=== PATIENT | male | born 1935 | race Hispanic/Latino ===

== ENCOUNTER 2018-10-27 19:14 | Inpatient (IN) | payer MEDICARE ==
[~2018-10-27] VITALS: Ht 180.3 cm; Wt 86.2 kg
[~2018-10-27 19:14] MED LIST: AMLODIPINE BES2.5 MG PO; FINASTERIDE5 MG PO; TAMSULOSIN HCL0.4 MG PO
[2018-10-27] MEDS ORDERED: PANTOPRAZOLE 40 MG 10ML VIAL IV STA (20:12)
[2018-10-27 20:24] LABS: BASOPHILS # (AUTO) 0.1 (0.0-0.1); BASOPHILS % 0.9 % (0.0-1.0); EOSINOPHILS # (AUTO) 0.3 (0.0-0.4); EOSINOPHILS % 4.8 % (0.0-6.0); HEMATOCRIT 22.3 % (38.2-49.6); LYMPHOCYTES # (AUTO) 0.9 (1.0-3.2); LYMPHOCYTES % 16.7 % (18.0-39.1); MEAN CORPUSCULAR HEMOGLOBIN 21.2 pg (28-32); MEAN CORPUSCULAR HGB CONC 29.6 g/dL (31-35); MEAN CORPUSCULAR VOLUME 71.5 fL (81-99); MONOCYTES # (AUTO) 0.6 (0.2-0.8); MONOCYTES % 10.6 % (4.4-11.3); NEUTROPHILS # (AUTO) 3.6 (2.1-6.9); NEUTROPHILS % 66.4 % (38.7-80.0); PLATELET COUNT 289 x10e3/uL (140-360); RED BLOOD COUNT 3.12 x10e6/uL (4.3-5.7); RED CELL DISTRIBUTION WIDTH 16.2 % (11.7-14.4)
[2018-10-27 20:28] LABS: HEMOGLOBIN 6.6 g/dL (14.0-18.0)
[2018-10-27 20:37] LABS: INR 1.08; PROTHROMBIN TIME 14.5 seconds (11.9-14.5)
[2018-10-27 20:38] LABS: PARTIAL THROMBOPLASTIN TIME 36.4 seconds (23.8-35.5)
[2018-10-27 20:44] LABS: ALANINE AMINOTRANSFERASE 6 IU/L (0-55); ALBUMIN 3.8 g/dL (3.5-5.0); ALBUMIN/GLOBULIN RATIO 1.4 (0.8-2.0); ALKALINE PHOSPHATASE 73 IU/L (40-150); ANION GAP 10.4 mmol/L (8-16); BLOOD UREA NITROGEN 9 mg/dL (7-26); BUN/CREATININE RATIO 13 (6-25); CALCIUM 8.7 mg/dL (8.4-10.2); CARBON DIOXIDE 24 mmol/L (22-29); CHLORIDE 99 mmol/L (98-107); CREATININE, SERUM 0.71 mg/dL (0.72-1.25); EST GLOMERULAR FILTRATION RATE > 60 ML/MIN (60-); GLUCOSE 105 mg/dL (74-118); POTASSIUM 4.4 mmol/L (3.5-5.1); SODIUM 129 mmol/L (136-145)
[2018-10-27] MEDS ORDERED: SODIUM CHLORIDE 0.9% 250ML 250 ML IV ONE (20:45)
[2018-10-27] MEDS ORDERED: ASPIR-LOW81 MG PO (20:48)
--- NOTE | 2018-10-27 20:48 | NUR ---
SPOKE TO DAUGHTER AT BEDSIDE REGARDING GETTING THE ACCURATE DOSAGE OF CIALIS HE IS CURRENTLY TAKING FOR PATIENT SAFETY. DAUGHTER AND PATIENT ARE NOT SURE OF DAILY DOSE TAKEN, DAUGHTER STATED SHE WOULD LET US KNOW THE DOSAGE SOON POSSIBLE.
[2018-10-27] MEDS ORDERED: SODIUM CHLORIDE FLUSH 10 ML SYR INJ PRN (21:30)
[2018-10-27] MEDS ORDERED: ONDANSETRON HCL INJ 2MG/ML 2ML 2 MG/ML VIAL IV PRN (21:30)
[2018-10-27 21:38] VITALS: BP 133/73
[2018-10-27 22:30] VITALS: BP 133/73
--- NOTE | 2018-10-27 22:30 | NUR ---
patient is a new admit that arrived via stretcher. patient is awake and talking. denies pain or discomfort. patient has been assisted into the bed. bed is in lowest position and call sandoval is within reach. will continue to monitor patient.
[2018-10-27] MEDS ORDERED: SODIUM CHLORIDE 0.9% 250ML 250 ML ONE (23:52)
[2018-10-28] VITALS (7 sets, daily range): BP systolic 125–163; BP diastolic 63–76
--- NOTE | 2018-10-28 00:13 | NUR ---
1 unit of blood is transfusing. no adverse reactions noted. patient is tolerating infusion process well. will continue to monitor infusion process.
--- NOTE | 2018-10-28 02:37 | NUR ---
1 unit of blood is done transfusing. no adverse reaction noted. patient tolerated procedure well. post transfusion lasix has been administered.
[2018-10-28] MEDS: FUROSEMIDE INJ 10 MG/ML 2 ML VIAL IV PRN ×2 (02:42→06:10)
[2018-10-28] MEDS ORDERED: SODIUM CHLORIDE 0.9% 250ML 250 ML ONE (03:14)
--- NOTE | 2018-10-28 03:28 | NUR ---
second unit of blood has started to transfuse. patient is tolerating procedure well. no adverse reaction noted. will continue to monitor patients transfusion process.
--- NOTE | 2018-10-28 06:10 | NUR ---
second unit of blood is done transfusing. patient tolerated procedure well. no adverse reaction noted. patient has been given post transfusion lasix.
--- NOTE | 2018-10-28 07:07 | NUR ---
report given to day nurse. patient is resting in bed. bed is in lowest position and call sandoval is within reach.
[2018-10-28] MEDS ORDERED: ACETAMINOPHEN 325 MG TAB PO PRN (07:15)
[2018-10-28] MEDS ORDERED: ZOLPIDEM TARTRATE 5 MG TAB PO PRN (07:15)
[2018-10-28] MEDS ORDERED: ONDANSETRON HCL INJ 2MG/ML 2ML 2 MG/ML VIAL IV PRN (07:15)
--- NOTE | 2018-10-28 07:20 | NUR ---
PRIMARY CARE PHYSICIAN: [facility]. CHIEF COMPLAINT: fatigue HISTORY OF PRESENT ILLNESS: This is an 83-year-old man felt dizzy and tired, developed severe anemia. Pt has not been on antiplatelets or blood thinners? Last colonoscopy, pt does not recall. no melena/hematochezia/abdominal pain. 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 ALLERGIES: PER ELECTRONIC MEDICAL RECORD. FAMILY HISTORY: Unknown. SOCIAL HISTORY: . He has a daughter who is involved in his care. No alcohol or illicits. The patient previously served in the [place]. Former smoker. MEDICATIONS: Per electronic medical record. REVIEW OF SYSTEMS: no f/c/s/N/V/D?SCOTT?cp/back pain/melena/hematochezia PHYSICAL EXAMINATION: VITAL SIGNS: revd PE: tired appearing anicteric ns1s2 mod bs soft nt nd no e/t awake; alert; rayo; hearing deficits skin dry n. affect LABS: Reviewed. MEDICATIONS: Reviewed. A/P: 83yoM Severe anemia Hyponatremia HTN Hx MV prolapse HTN BPH Decreased hearing PLAN f/u anemia panel 2 units PRBC; stool occult negative IV ppi Will need colonoscopy outpt. Consider CT abdomen. Afshin Blanchard MD, PhD.
[2018-10-28] MEDS: PANTOPRAZOLE 40 MG 10ML VIAL IV SCH (08:38)
[2018-10-28] MEDS: FERROUS SULFATE 325 MG TAB PO SCH ×2 (08:38→16:28)
[2018-10-28] MEDS: MULTIVITAMINS/MINERALS TAB PO SCH (08:38)
[2018-10-28 10:39] LABS: BASOPHILS # (AUTO) 0.1 (0.0-0.1); BASOPHILS % 1.1 % (0.0-1.0); EOSINOPHILS # (AUTO) 0.2 (0.0-0.4); EOSINOPHILS % 3.4 % (0.0-6.0); HEMATOCRIT 28.9 % (38.2-49.6); HEMOGLOBIN 8.9 g/dL (14.0-18.0); LYMPHOCYTES # (AUTO) 0.8 (1.0-3.2); LYMPHOCYTES % 14.9 % (18.0-39.1); MEAN CORPUSCULAR HEMOGLOBIN 22.5 pg (28-32); MEAN CORPUSCULAR HGB CONC 30.8 g/dL (31-35); MONOCYTES # (AUTO) 0.5 (0.2-0.8); NEUTROPHILS # (AUTO) 3.7 (2.1-6.9); NEUTROPHILS % 70.2 % (38.7-80.0); PLATELET COUNT 279 x10e3/uL (140-360); RED BLOOD COUNT 3.96 x10e6/uL (4.3-5.7); RED CELL DISTRIBUTION WIDTH 17.3 % (11.7-14.4)
[2018-10-28 10:59] LABS: ALANINE AMINOTRANSFERASE 7 IU/L (0-55); ALBUMIN 3.6 g/dL (3.5-5.0); ALBUMIN/GLOBULIN RATIO 1.2 (0.8-2.0); ALKALINE PHOSPHATASE 68 IU/L (40-150); BLOOD UREA NITROGEN 8 mg/dL (7-26); BUN/CREATININE RATIO 12 (6-25); CARBON DIOXIDE 27 mmol/L (22-29); CHLORIDE 100 mmol/L (98-107); CREATININE, SERUM 0.69 mg/dL (0.72-1.25); EST GLOMERULAR FILTRATION RATE > 60 ML/MIN (60-); GLUCOSE 116 mg/dL (74-118); SODIUM 134 mmol/L (136-145)
--- NOTE | 2018-10-28 11:06 | NUR ---
patient resting in bed, denies any pain not in any distress, call light in reach
[2018-10-28 13:38] LABS: FERRITIN 13.88 ng/mL (21.81-274.66); FREE THYROXINE INDEX 2.5485 (1.4-3.8); THYROID STIMULATING HORMONE 2.123 uIU/mL (0.350-4.940)
[2018-10-28] MEDS ORDERED: CYANOCOBALAMIN INJ 1,000 MCG/ML VIAL IM SCH (17:00)
[2018-10-28] MEDS ORDERED: CIALIS5 MG PO (18:47)
[2018-10-28] MEDS ORDERED: METOPROLOL SUCC25 MG PO (18:47)
--- NOTE | 2018-10-28 19:04 | NUR ---
received report from day nurse. patient is resting comfortably in bed. bed is in lowest position and call sandoval is within reach. will continue to monitor patient's care.
[2018-10-29] VITALS (9 sets, daily range): BP systolic 115–152; BP diastolic 71–82
[2018-10-29] MEDS ORDERED: SODIUM CHLORIDE 0.9% 50ML 50 ML ONE (05:34)
[2018-10-29] MEDS ORDERED: IOPAMIDOL 370 MG/ML 200 ML INFUS..BTL INJ ONE (05:35)
--- NOTE | 2018-10-29 06:37 | Diagnostic Imaging Report ---
CT Abdomen And Pelvis with Intravenous Contrast INDICATION: Severe anemia ^severe anemia- evaluate for mass or other abnormalities. ^[id number] ^[id number] TECHNIQUE: Thin collimation axial images obtained from the diaphragm to the level of the pubic symphysis following the uneventful administration of 100 cc of low osmolar, nonionic intravenous contrast. Dose reduction techniques used: Automated exposure control, adjustment of the mAs and/or kVp according to patient size, standardized low-dose protocol, and/or iterative reconstruction technique. RADIATION DOSE: Total DLP: 475.56 mGy*cm Estimated effective dose: (DLP x 0.015 x size factor) mSv CTDIvol has been reviewed. It is below the limits set by the Radiation Protocol Committee (RPC). COMPARISON: None. ABDOMEN FINDINGS: Lung Bases: Mild bibasilar reticulation suggestive of early fibrosis. No infiltrates or masses. Visualized portion of the mediastinum demonstrate coronary artery and proximal aortic calcifications. Liver: Mild steatosis. No evidence for mass. Gallbladder: Absent. No biliary ductal dilatation. Pancreas: Normal attenuation without mass or ductal dilatation. Spleen: Normal in size. No evidence of mass.. Adrenal Glands: No evidence for mass. Kidneys: Right: Normal enhancement. No soft tissue mass. No hydronephrosis. Left: Normal enhancement. Upper pole cyst measures 2.2 cm. No hydronephrosis. Lymph Nodes: No enlarged abdominal or retroperitoneal lymph nodes. Aorta: Tortuous and diffusely calcified PELVIS FINDINGS: Bowel: Stomach: Normal. Small Bowel: Normal in caliber with normal wall thickness. Large Bowel: Diverticulosis coli. No associated inflammation. No focal mural thickening. Appendix: Not visualized and may be absent or collapsed. Bladder: Under distended with circumferential mural thickening. There is a diverticulum at the dome. Prostate: Enlarged. Lymph nodes: No enlarged mesenteric, pelvic, or internal lymph nodes. No free fluid or fluid collection Bones: Mild degenerative changes of the spine superimposed on scoliosis. There is grade 1 retrolisthesis of L2 on L3 without pars defects. No lytic or blastic lesions. Soft tissues: Supraumbilical hernia through the linea alba contains a knuckle of small bowel and is located approximately 12 cm above the umbilicus. The aperture measures 15 mm. No fluid in the hernia sac.. IMPRESSION: 1. No mass or lymphadenopathy to explain anemia. 2. Diverticulosis coli. No evidence for bowel obstruction or inflammation. 3. Left renal cyst. Recommend confirmation of uniform cystic contents with renal ultrasound. 4. Prostate hypertrophy and bladder wall thickening suggestive of outlet obstruction. 5. Small bowel containing abdominal wall hernia as described above. Signed by: Dr. Malik Rodrigues MD on 10/29/2018 6:34 AM
--- NOTE | 2018-10-29 07:01 | NUR ---
report given to day nurse. patient is resting in bed. bed is in lowest position and call sandoval is within reach.
--- NOTE | 2018-10-29 07:15 | NUR ---
RECEIVED REPORT FROM INBOUND CALL CENTER REPRESENTATIVE RN. PT IN BED LYING DOWN, BED IN LOWEST POSITION, WHEELS LOCKED, CALL LIGHT AND BEDSIDE TABLE WITHIN REACH. PT SHOWS NO S/S OF DISTRESS. WILL CONTINUE TO MONITOR
[2018-10-29] MEDS: MULTIVITAMINS/MINERALS TAB PO SCH (08:12)
[2018-10-29] MEDS: CYANOCOBALAMIN 1,000 MCG TAB PO SCH (08:12)
[2018-10-29] MEDS: FERROUS SULFATE 325 MG TAB PO SCH ×2 (08:12→17:30)
[2018-10-29] MEDS: PANTOPRAZOLE 40 MG 10ML VIAL IV SCH (08:29)
--- NOTE | 2018-10-29 10:25 | NUR ---
VOICE MESSAGE, LEFT FOR DR. STEPHENS REQUESTING CALL BACK: PT SATES HE IS LIGHTHEADED, SHORT OF BREATH, EXTREMELY TIRED AND JUST DOESN'T FEEL GOOD. VITALS WERE ASSESSED AT 10:15- B/P 139/82. O2 99%. TEMP 96.3
[2018-10-29] MEDS ORDERED: MECLIZINE HCL 12.5 MG TAB PO PRN (10:45)
[2018-10-29 11:05] LABS: BASOPHILS # (AUTO) 0.1 (0.0-0.1); BASOPHILS % 0.8 % (0.0-1.0); EOSINOPHILS # (AUTO) 0.3 (0.0-0.4); EOSINOPHILS % 4.3 % (0.0-6.0); HEMATOCRIT 28.3 % (38.2-49.6); HEMOGLOBIN 8.8 g/dL (14.0-18.0); LYMPHOCYTES # (AUTO) 1.2 (1.0-3.2); LYMPHOCYTES % 18.9 % (18.0-39.1); MEAN CORPUSCULAR HEMOGLOBIN 22.6 pg (28-32); MEAN CORPUSCULAR HGB CONC 31.1 g/dL (31-35); MEAN CORPUSCULAR VOLUME 72.8 fL (81-99); MONOCYTES # (AUTO) 0.6 (0.2-0.8); MONOCYTES % 8.8 % (4.4-11.3); NEUTROPHILS # (AUTO) 4.3 (2.1-6.9); PLATELET COUNT 288 x10e3/uL (140-360); RED BLOOD COUNT 3.89 x10e6/uL (4.3-5.7); RED CELL DISTRIBUTION WIDTH 17.9 % (11.7-14.4)
[2018-10-29 11:55] LABS: ANION GAP 8.3 mmol/L (8-16); BLOOD UREA NITROGEN 12 mg/dL (7-26); BUN/CREATININE RATIO 18 (6-25); CALCIUM 8.8 mg/dL (8.4-10.2); CARBON DIOXIDE 27 mmol/L (22-29); CHLORIDE 95 mmol/L (98-107); CREATININE, SERUM 0.67 mg/dL (0.72-1.25); EST GLOMERULAR FILTRATION RATE > 60 ML/MIN (60-); GLUCOSE 128 mg/dL (74-118); PHOSPHORUS 3.2 MG/DL (2.3-4.7); POTASSIUM 4.3 mmol/L (3.5-5.1); SODIUM 126 mmol/L (136-145)
--- NOTE | 2018-10-29 14:50 | NUR ---
IM- progress note O/N; s/p blood transfusion REVIEW OF SYSTEMS: no f/c/s/N/V/D?SCOTT?cp/back pain/melena/hematochezia PHYSICAL EXAMINATION: VITAL SIGNS: revd PE: tired appearing anicteric ns1s2 mod bs soft nt nd no e/t awake; alert; rayo; hearing deficits skin dry n. affect LABS: Reviewed. MEDICATIONS: Reviewed. A/P: 83yoM Severe anemia Hyponatremia HTN Hx MV prolapse HTN BPH Decreased hearing PLAN f/u anemia panel 2 units PRBC; stool occult negative IV ppi Will need colonoscopy outpt. Consider CT abdomen. 10/29 abdominal wall hernia; diverticulosis; no mass seen on CT; Hb stable; hyponatremia- start salt tabs; d/c planning; If Na at 8pm is >130, pt can go home. Afshin Blanchard MD, PhD.
[2018-10-29] MEDS ORDERED: VITAMIN B-121000 MCG PO (14:53)
[2018-10-29] MEDS ORDERED: Meclizine Hcl PO (14:53)
[2018-10-29] MEDS ORDERED: FERROUS SULFAT325 MG PO (14:53)
[2018-10-29] MEDS ORDERED: Multivitamins/Minerals PO (14:53)
[2018-10-29] MEDS ORDERED: SODIUM CHLORIDE1 GM PO (14:53)
[2018-10-29] MEDS ORDERED: PROTONIX20 MG PO (14:54)
[2018-10-29] MEDS: SODIUM CHLORIDE 1 GM TAB PO SCH ×2 (15:27→21:55)
--- NOTE | 2018-10-29 19:15 | NUR ---
REPORT GIVEN TO CONTENT DIRECTOR NURSE. PT HAS NO COMPLAINTS. CALL LIGHT WITHIN REACH, BED LOCKED AND IN LOWEST POSITION, ROOM FREE FROM CLUTTER. FAMILY AT BEDSIDE
--- NOTE | 2018-10-29 20:00 | NUR ---
PATIENT RESTING IN BED WITHOUT ACUTE DISTRESS, HE DENIES PAIN BUT C/O FEELING DIZZY. SKIN INTEGRITY INTACT, CALL LIGHT WITHIN EASY REACH, BED ALARM ON.
--- NOTE | 2018-10-29 20:51 | NUR ---
DR STEPHENS AWARE OF THIS PATIENT'S SODIUM RESULT, NO NEW ORDERS RECEIVED.
--- NOTE | 2018-10-29 23:40 | NUR ---
PATIENT IS ASLEEP, HE'S EASY TO AROUSE AND HE DENIES PAIN. BED ALARM ON, CALL LIGHT WITHIN EASY REACH.
[2018-10-30] VITALS (7 sets, daily range): BP systolic 141–156; BP diastolic 72–87
--- NOTE | 2018-10-30 03:30 | NUR ---
PATIENT IS ASLEEP, HE'S EASY TO AROUSE. BED ALARM ON, CALL LIGHT WITHIN EASY REACH.
[2018-10-30 07:12] LABS: ANION GAP 8.2 mmol/L (8-16); BLOOD UREA NITROGEN 9 mg/dL (7-26); BUN/CREATININE RATIO 15 (6-25); CALCIUM 8.7 mg/dL (8.4-10.2); CARBON DIOXIDE 26 mmol/L (22-29); CHLORIDE 93 mmol/L (98-107); CREATININE, SERUM 0.59 mg/dL (0.72-1.25); EST GLOMERULAR FILTRATION RATE > 60 ML/MIN (60-); GLUCOSE 106 mg/dL (74-118); POTASSIUM 4.2 mmol/L (3.5-5.1); SODIUM 123 mmol/L (136-145)
[2018-10-30] MEDS: FERROUS SULFATE 325 MG TAB PO SCH ×2 (07:46→17:57)
[2018-10-30 07:48] LABS: BLOOD UREA NITROGEN 8 mg/dL (7-26); GLUCOSE 104 mg/dL (74-118); OSMOLALITY,SERUM 246 mOsm/kg (278-305); SODIUM 123 mmol/L (136-145)
[2018-10-30] MEDS ORDERED: FUROSEMIDE 40 MG TAB PO ONE (08:30)
[2018-10-30] MEDS: CYANOCOBALAMIN 1,000 MCG TAB PO SCH (08:34)
[2018-10-30] MEDS: PANTOPRAZOLE 40 MG 10ML VIAL IV SCH (08:34)
[2018-10-30] MEDS: MULTIVITAMINS/MINERALS TAB PO SCH (08:34)
[2018-10-30] MEDS: SODIUM CHLORIDE 1 GM TAB PO SCH ×3 (08:34→20:23)
[2018-10-30] MEDS ORDERED: SODIUM CHLORIDE 1 GM TAB PO ONE (08:45)
[2018-10-30] MEDS ORDERED: SODIUM CHLORIDE 1 GM TAB PO SCH ×2 (08:45→09:00)
--- NOTE | 2018-10-30 16:34 | Consultation ---
DATE OF CONSULTATION: 10/30/2018 HISTORY OF PRESENT ILLNESS: An 83-year-old gentleman, who was admitted with anemia, received packed RBC transfusion. Workup underway. Renal consulted for management of hyponatremia, which has been refractory to treatment. He is currently awake, alert, complaining of mid abdominal pain with some nausea. Denies diarrhea, fever, chills, chest pains. He had a CT with IV contrast shows diverticulosis coli, prostate hypertrophy, and a small umbilical hernia. Laboratory test shows a urine sodium of 76, urine osmolality is pending. Sodium 123, potassium 4.2, creatinine 0.59. Serum osmolality 246. I ordered a uric acid level came back at 4.2, phosphorus 3.2, magnesium 2. SOCIAL HISTORY: The patient does not smoke or drink. CURRENT MEDICATIONS: The patient is on vitamin B12, pantoprazole, Ambien, Tylenol p.r.n. PAST MEDICAL HISTORY: Significant for hypertension. PHYSICAL EXAMINATION: GENERAL: Awake, alert, lying supine, in no apparent distress. VITAL SIGNS: Blood pressure 145/81, pulse rate 73, afebrile, had oxygen saturation 99% on room air. HEAD AND NECK: Cornea clear. Arcus senilis noted. Oral mucosa dry. Neck veins are flat. LUNGS: Relatively clear. No rales. HEART: S1, S2 audible. ABDOMEN: Otherwise soft and nontender. No apparent visceromegaly. EXTREMITIES: Lower extremity, no edema. LABORATORY DATA: Show evidence of hyponatremia, possible SIADH. TSH is 2.123. Etiology unclear. Plan on titrating the sodium chloride tablets to 2 g p.o. t.i.d. We will start Lasix 40 mg p.o. daily, first dose now. Normal saline x1 L. in fact, I am not going to give normal saline. We will place on 1000 mL p.o. fluid restriction. Medications reviewed. Discussed with the patient. Await osmolality results. Regular salt diet. Please see orders. MD OMAR Callaway/SOFIAL /[phone]
[2018-10-30] MEDS: TAMSULOSIN HCL 0.4 MG CAP PO SCH (20:23)
[2018-10-31] VITALS (9 sets, daily range): BP systolic 114–142; BP diastolic 68–85
[2018-10-31] MEDS ORDERED: DEXAMETHASONE SOD PHOS INJ 4 MG/ML VIAL ONE (05:53)
[2018-10-31] MEDS ORDERED: BUPIVACAINE HCL 0.5% INJ 30 ML VIAL INJ ONE (05:53)
--- NOTE | 2018-10-31 07:27 | NUR ---
IM- progress note O/N; s/p blood transfusion REVIEW OF SYSTEMS: no f/c/s/N/V/D?SCOTT?cp/back pain/melena/hematochezia PHYSICAL EXAMINATION: VITAL SIGNS: revd PE: tired appearing anicteric ns1s2 mod bs soft nt nd no e/t awake; alert; rayo; hearing deficits skin dry n. affect LABS: Reviewed. MEDICATIONS: Reviewed. A/P: 83yoM Severe anemia Hyponatremia HTN Hx MV prolapse HTN BPH Decreased hearing PLAN f/u anemia panel 2 units PRBC; stool occult negative IV ppi Will need colonoscopy outpt. Consider CT abdomen. 10/29 abdominal wall hernia; diverticulosis; no mass seen on CT; Hb stable; hyponatremia- start salt tabs; d/c planning; If Na at 8pm is >130, pt can go home. 10/30 na worse 10/31 SIADH - continue fluid restriction and salt tabs; may need tolvaptan- defer to nephrology; check labs. Afshin Blanchard MD, PhD.
[2018-10-31 08:05] LABS: BASOPHILS # (AUTO) 0.1 (0.0-0.1); BASOPHILS % 1.5 % (0.0-1.0); EOSINOPHILS # (AUTO) 0.5 (0.0-0.4); EOSINOPHILS % 11.3 % (0.0-6.0); HEMATOCRIT 28.8 % (38.2-49.6); HEMOGLOBIN 8.7 g/dL (14.0-18.0); LYMPHOCYTES # (AUTO) 0.9 (1.0-3.2); MEAN CORPUSCULAR HEMOGLOBIN 22.6 pg (28-32); MEAN CORPUSCULAR HGB CONC 30.2 g/dL (31-35); MEAN CORPUSCULAR VOLUME 74.8 fL (81-99); MONOCYTES # (AUTO) 0.5 (0.2-0.8); MONOCYTES % 9.6 % (4.4-11.3); NEUTROPHILS # (AUTO) 2.7 (2.1-6.9); NEUTROPHILS % 57.2 % (38.7-80.0); PLATELET COUNT 274 x10e3/uL (140-360); RED BLOOD COUNT 3.85 x10e6/uL (4.3-5.7); RED CELL DISTRIBUTION WIDTH 19.2 % (11.7-14.4)
[2018-10-31 08:36] LABS: ANION GAP 11.1 mmol/L (8-16); BLOOD UREA NITROGEN 11 mg/dL (7-26); BUN/CREATININE RATIO 19 (6-25); CALCIUM 8.6 mg/dL (8.4-10.2); CARBON DIOXIDE 21 mmol/L (22-29); CHLORIDE 94 mmol/L (98-107); CREATININE, SERUM 0.58 mg/dL (0.72-1.25); EST GLOMERULAR FILTRATION RATE > 60 ML/MIN (60-); GLUCOSE 107 mg/dL (74-118); MAGNESIUM 2.2 MG/DL (1.3-2.1); PHOSPHORUS 3.6 MG/DL (2.3-4.7); POTASSIUM 4.1 mmol/L (3.5-5.1); SODIUM 122 mmol/L (136-145)
[2018-10-31] MEDS ORDERED: FUROSEMIDE INJ 10 MG/ML 4 ML VIAL IV ONE (09:00)
[2018-10-31] MEDS ORDERED: FUROSEMIDE 40 MG TAB PO SCH (09:00)
[2018-10-31] MEDS: PANTOPRAZOLE SOD 40 MG TABEC PO SCH (09:41)
[2018-10-31] MEDS: CYANOCOBALAMIN 1,000 MCG TAB PO SCH (09:41)
[2018-10-31] MEDS: SODIUM CHLORIDE 1 GM TAB PO SCH ×3 (09:41→20:30)
[2018-10-31] MEDS: FERROUS SULFATE 325 MG TAB PO SCH ×2 (09:41→17:35)
[2018-10-31] MEDS: MULTIVITAMINS/MINERALS TAB PO SCH (09:41)
[2018-10-31] MEDS: ONDANSETRON HCL 4 MG ORAL DISINTEGRATING TAB PO PRN ×2 (09:45→15:50)
[2018-10-31 14:39] LABS: ALANINE AMINOTRANSFERASE 9 IU/L (0-55); ALBUMIN 3.9 g/dL (3.5-5.0); ALBUMIN/GLOBULIN RATIO 1.1 (0.8-2.0); ALKALINE PHOSPHATASE 81 IU/L (40-150); ANION GAP 11.7 mmol/L (8-16); BLOOD UREA NITROGEN 12 mg/dL (7-26); BUN/CREATININE RATIO 16 (6-25); CALCIUM 9.5 mg/dL (8.4-10.2); CARBON DIOXIDE 26 mmol/L (22-29); CHLORIDE 92 mmol/L (98-107); CHOL/HDL RATIO 2.4 (3.9-4.7); CHOLESTEROL 156 MD/DL (0-199); CREATININE, SERUM 0.77 mg/dL (0.72-1.25); EST GLOMERULAR FILTRATION RATE > 60 ML/MIN (60-); GLUCOSE 109 mg/dL (74-118); HDL CHOLESTEROL 66 MG/DL (40-60); LDL CHOLESTEROL 75 MG/DL (60-130); POTASSIUM 3.7 mmol/L (3.5-5.1); SODIUM 126 mmol/L (136-145); TRIGLYCERIDES 75 MG/DL (0-149)
[2018-10-31 14:58] LABS: THYROID STIMULATING HORMONE 4.176 uIU/mL (0.350-4.940)
--- NOTE | 2018-10-31 19:00 | NUR ---
received report from day nurse. patient is resting comfortably in bed. denies pain or discomfort. bed is in lowest position and call sandoval is within reach. will continue to monitor patient's care.
[2018-10-31] MEDS: TAMSULOSIN HCL 0.4 MG CAP PO SCH (20:29)
[2018-11-01 04:32] VITALS: BP 120/68
[2018-11-01 06:06] LABS: ALANINE AMINOTRANSFERASE 8 IU/L (0-55); ALBUMIN 3.5 g/dL (3.5-5.0); ALBUMIN/GLOBULIN RATIO 1.4 (0.8-2.0); ALKALINE PHOSPHATASE 62 IU/L (40-150); ANION GAP 9.7 mmol/L (8-16); BLOOD UREA NITROGEN 13 mg/dL (7-26); BUN/CREATININE RATIO 19 (6-25); CALCIUM 8.7 mg/dL (8.4-10.2); CARBON DIOXIDE 27 mmol/L (22-29); CHLORIDE 94 mmol/L (98-107); EST GLOMERULAR FILTRATION RATE > 60 ML/MIN (60-); GLUCOSE 110 mg/dL (74-118); POTASSIUM 4.7 mmol/L (3.5-5.1); SODIUM 126 mmol/L (136-145)
--- NOTE | 2018-11-01 06:30 | NUR ---
IM- progress note O/N; s/p blood transfusion REVIEW OF SYSTEMS: no f/c/s/N/V/D?SCOTT?cp/back pain/melena/hematochezia PHYSICAL EXAMINATION: VITAL SIGNS: revd PE: tired appearing anicteric ns1s2 mod bs soft nt nd no e/t awake; alert; rayo; hearing deficits skin dry n. affect LABS: Reviewed. MEDICATIONS: Reviewed. A/P: 83yoM Severe anemia Hyponatremia HTN Hx MV prolapse HTN BPH Decreased hearing PLAN f/u anemia panel 2 units PRBC; stool occult negative IV ppi Will need colonoscopy outpt. Consider CT abdomen. 10/29 abdominal wall hernia; diverticulosis; no mass seen on CT; Hb stable; hyponatremia- start salt tabs; d/c planning; If Na at 8pm is >130, pt can go home. 10/30 na worse 10/31 SIADH - continue fluid restriction and salt tabs; may need tolvaptan- defer to nephrology; check labs. 11/01 cont care Afshin Blanchard MD, PhD.
--- NOTE | 2018-11-01 06:45 | NUR ---
report given to day nurse. patient is resting comfortably in bed. bed is in lowest position and call sandoval is within reach.
[2018-11-01 07:20] VITALS: BP 126/68
[2018-11-01] MEDS: SODIUM CHLORIDE 1 GM TAB PO SCH ×3 (09:55→21:34)
[2018-11-01] MEDS: CYANOCOBALAMIN 1,000 MCG TAB PO SCH (09:55)
[2018-11-01] MEDS: FUROSEMIDE 40 MG TAB PO SCH (09:55)
[2018-11-01] MEDS: MULTIVITAMINS/MINERALS TAB PO SCH (09:55)
[2018-11-01] MEDS: ONDANSETRON HCL 4 MG ORAL DISINTEGRATING TAB PO PRN ×3 (09:55→21:34)
[2018-11-01] MEDS: FERROUS SULFATE 325 MG TAB PO SCH ×2 (09:55→16:22)
[2018-11-01] MEDS: PANTOPRAZOLE SOD 40 MG TABEC PO SCH (09:55)
[2018-11-01 10:10] VITALS: BP 126/68
[2018-11-01 11:07] VITALS: BP 135/78
--- NOTE | 2018-11-01 12:49 | NUR ---
CALLED THE [facility] [phone] EXT [phone] SPOKE WITH KATHRYN SHE STATES TO FAX CLINICALS TO [phone]. SHE STATES TO GO AHEAD AND FAX CLINICALS TO SEE IF A STEP DOWN BED BECOMES AVAILABLE
[2018-11-01 15:29] VITALS: BP 138/80
[2018-11-01 20:00] VITALS: BP 138/76
[2018-11-01] MEDS: TAMSULOSIN HCL 0.4 MG CAP PO SCH (21:34)
[2018-11-02] VITALS: BP 126/74
[2018-11-02 04:00] VITALS: BP 142/77
[2018-11-02 05:51] LABS: ALANINE AMINOTRANSFERASE 9 IU/L (0-55); ALBUMIN 3.4 g/dL (3.5-5.0); ALBUMIN/GLOBULIN RATIO 1.4 (0.8-2.0); ALKALINE PHOSPHATASE 67 IU/L (40-150); ANION GAP 9.3 mmol/L (8-16); BLOOD UREA NITROGEN 14 mg/dL (7-26); BUN/CREATININE RATIO 19 (6-25); CALCIUM 8.9 mg/dL (8.4-10.2); CARBON DIOXIDE 27 mmol/L (22-29); CHLORIDE 98 mmol/L (98-107); CREATININE, SERUM 0.73 mg/dL (0.72-1.25); EST GLOMERULAR FILTRATION RATE > 60 ML/MIN (60-); GLUCOSE 109 mg/dL (74-118); POTASSIUM 4.3 mmol/L (3.5-5.1); SODIUM 130 mmol/L (136-145)
--- NOTE | 2018-11-02 07:00 | NUR ---
The pt. was received in bed asleep with side rails elevated times 2. Dr. Blanchard visited and wanted to know if the pt. c/o vision problems and was advised that no report of problems was relayed to this sql report writer. A MRI of the brain was ordered before discharge as well as the pt. needing to be seen by nephrology.
--- NOTE | 2018-11-02 07:01 | NUR ---
report given to day nurse. patient is resting comfortably in bed. bed is in lowest position and call sandoval is within reach.
[2018-11-02] MEDS ORDERED: FUROSEMIDE40 MG PO (07:13)
[2018-11-02] MEDS ORDERED: SODIUM CHLORIDE1 GM PO (07:13)
[2018-11-02] MEDS: PANTOPRAZOLE SOD 40 MG TABEC PO SCH (07:30)
[2018-11-02] MEDS: FERROUS SULFATE 325 MG TAB PO SCH ×2 (08:00→16:49)
[2018-11-02 08:27] VITALS: BP 114/77
--- NOTE | 2018-11-02 08:29 | NUR ---
After visiting with the pt. he reports that he can not see from his left eye and the MRI is pending.
[2018-11-02 08:44] VITALS: BP 114/77
[2018-11-02] MEDS: FUROSEMIDE 40 MG TAB PO SCH (09:00)
[2018-11-02] MEDS: SODIUM CHLORIDE 1 GM TAB PO SCH ×2 (09:00→14:35)
[2018-11-02] MEDS: CYANOCOBALAMIN 1,000 MCG TAB PO SCH (09:00)
[2018-11-02] MEDS: MULTIVITAMINS/MINERALS TAB PO SCH (09:00)
--- NOTE | 2018-11-02 10:10 | NUR ---
The pt. called to ask why h needs an MRI and states he dos not want to have it done. The dr. was called to notify and a voiemail was left requesting further orders.
--- NOTE | 2018-11-02 11:22 | NUR ---
I spoke with Dr. Blanchard concerning the MRI and he asked that the pt. be inquired about a CT scan and order if the pt. agrees.
[2018-11-02 12:32] VITALS: BP 132/82
--- NOTE | 2018-11-02 14:05 | Diagnostic Imaging Report ---
EXAMINATION: Head CT HISTORY: Anemia, abnormal sodium levels, effect on brain COMPARISON: None. TECHNIQUE: Multidetector axial images were obtained without contrast from the foramen magnum to the vertex . The images were reconstructed using brain and bone algorithms. Thin section brain images were reformatted into coronal and sagittal planes. Image quality: Motion/streaking artifact limits the evaluation of the skull base and posterior cranial fossa. Dose modulation, iterative reconstruction, and/or weight based adjustment of the mA/kV was utilized to reduce the radiation dose to as low as reasonably achievable. FINDINGS: Parenchyma: 1. A few scattered limited hypodensities, most likely nonspecific chronic microvascular ischemic changes. 2. No mass or hemorrhage. No CT evidence of acute territorial vascular insult. Extra-axial spaces:No abnormal density. No extra-axial fluid collections Brain volume: Normal for age. Ventricles: No hydrocephalus or displacement. Arteries: No density suggestive of thrombus. Dural sinuses: No abnormal density. Extra-axial spaces: No abnormal density. Foramen magnum: No mass, Chiari malformation, or basilar invagination. Sella: No obvious mass. Paranasal/mastoid sinuses: Hypo pneumatization, sclerosis and opacification of the right mastoid air cells, likely related to remote/chronic inflammatory process. Skull/Scalp: No lytic or blastic lesions. No fractures. IMPRESSION: 1. No acute intracranial abnormalities. 2. Mild age-related chronic microvascular ischemic changes. Signed by: Dr. Lesly Salmeron M.D. on 11/02/2018 2:01 PM
--- NOTE | 2018-11-02 14:42 | NUR ---
Results of the ct scan was called to Dr. Blanchard and no new orders received. The pt. is to discharge and he reports that his ride is not available until after 1600 pm
--- NOTE | 2018-11-02 16:51 | NUR ---
The pt. did not receive iron tab as he is discharged and just waiting for his ride.
== END 2018-11-02 17:20 | disposition home or self-care (01) | DRG 812 ==
LOC: ER 19:14 → ERHOLD 21:29 → IMCU 22:36 → OBSVTOIN 10-31 15:10
PROVIDERS: ADMIT Internal Medicine; ATTEND Internal Medicine
PROC: 30233N1 Transfusion of Nonautologous Red Blood Cells into Peripheral Vein, Percutaneous Approach (ICD-10-PCS; principal; 2018-10-27)
DX: D50.0 Iron deficiency anemia secondary to blood loss (chronic) (principal); E22.2 Syndrome of inappropriate secretion of antidiuretic hormone; K57.90 Diverticulosis of intestine, part unspecified, without perforation or abscess without bleeding; K42.9 Umbilical hernia without obstruction or gangrene; N40.0 Benign prostatic hyperplasia without lower urinary tract symptoms; J44.9 Chronic obstructive pulmonary disease, unspecified; H54.61 Unqualified visual loss, right eye, normal vision left eye; N32.81 Overactive bladder; F32.9 Major depressive disorder, single episode, unspecified
CPT/HCPCS: 36415; 70450; 74177; 80048; 80053; 80061; 82270; 82607; 82728; 82947; 83540; 83735; 83935; 84100; 84295; 84300; 84436; 84443; 84466; 84479; 84520; 84550; 85025; 85610; 85730; 86850; 86900; 86920; 93005; 99284; G0378; J1100; J1940; J3420; J7050; P9016; Q9967